=== PATIENT | female | born 1995 | race Caucasian/White ===

== ENCOUNTER 2018-03-15 02:17 | Emergency (ER) | payer BC ==
[~2018-03-15] VITALS: Ht 165.1 cm; Wt 79.4 kg
[2018-03-15 02:25] VITALS: BP_SYST 118
[2018-03-15] MEDS ORDERED: IBUPROFEN 800 MG TABLET PO ONE (03:00)
[2018-03-15] MEDS ORDERED: AMOXICILLIN 500 MG CAPSULE PO ONE (03:00)
[2018-03-15 03:16] VITALS: BP_SYST 118
== END 2018-03-15 03:16 | disposition home or self-care (01) ==
LOC: SED 02:17
DX: H66.92 Otitis media, unspecified, left ear (principal)
CPT/HCPCS: 99283

== ENCOUNTER 2021-12-26 22:46 | Emergency (ER) | payer BC, MEDICAID ==
[~2021-12-26] VITALS: Ht 165.1 cm; Wt 95.3 kg
[2021-12-26 22:50] VITALS: BP_SYST 127
--- NOTE | 2021-12-27 00:02 | NUR ---
Patient to ER bed 8 to gown for evaluation. Side rails up. Report given to Ambrocio JUAN(reg).
--- NOTE | 2021-12-27 00:16 | NUR ---
26 YR OLD FEMALE WITH DIFFICULTY WALKING DUE TO SMASHING ALL FIVE TOES ON THE LEFT FOOT ON A PLASTIC SLIDE ABOUT 7 HOURS AGO. PT REPORTED TAKING 800 MG OF IBUPROFEN FOR PAIN AFTER THE INCIDENT WITH NO PAIN RELIEF. PT REFUSES TO MOVE HER TOES DUE TO UNTOLERABLE WITH MOVEMENT. PT NOTED TO HAVE BRUISING ON THE TOP OF HER LEFT FOOT, WITH MILD SWELLING. PT STATED SHE HAS NOT PUT HER BODY WEIGHT ON HER LEFT FOOT SINCE THE INCIDENT. PT REPORTS HX OF GERD. PENDING XRAY AND MD EVALUATION.
--- NOTE | 2021-12-27 00:44 | NUR ---
AT THE BEDSIDE FOR EVALUATION
[2021-12-27] MEDS ORDERED: KETOROLAC TROMETHAMINE 30 MG VIAL IM ONE (01:00)
--- NOTE | 2021-12-27 01:14 | NUR ---
AT THE BEDSIDE TO INFORM PT OF XRAY RESULTS, PT PENDING FOOT WRAP WITH REBEL BANDAGE BY TECH.
--- NOTE | 2021-12-27 01:20 | NUR ---
EMT TECH AT THE BEDSIDE TO PLACE REBEL BANDAGE WITH BOOT ON PT FOR COMFORT, PENDING DISCHARGE
[2021-12-27] MEDS ORDERED: HYDROcodone/ACETAMIN 7.5-325 MG TAB PO ONE (01:30)
--- NOTE | 2021-12-27 01:41 | NUR ---
PT PROVIDED WITH DISCHARGE INSTRUCTIONS FOR [facility] OF FOOT CONTUSION. PT ENCOURAGED TO FOLLOW UP WITH PRIMARY CARE PHYSICIAN WITHIN 10 DAYS.ALL QUESTIONS ANSWERED, PT VERBALIZED UNDERSTANDING. PT DISCHARGED WITH ALL BELONGINGS, IN STABLE CONDITION, WITH CRUTCHES FROM HOME ACCOMPANIED BY MOTHER.
== END 2021-12-27 01:51 | disposition home or self-care (01) ==
LOC: SED 22:46
DX: S90.32XA Contusion of left foot, initial encounter (principal); J45.909 Unspecified asthma, uncomplicated; X58.XXXA Exposure to other specified factors, initial encounter; Y93.89 Activity, other specified; Y92.89 Other specified places as the place of occurrence of the external cause; Y99.8 Other external cause status
CPT/HCPCS: 73660; 96372; 99283; J1885

== ENCOUNTER 2022-03-28 18:15 | Emergency (ER) | payer MEDICAID ==
[~2022-03-28] VITALS: Ht 165.1 cm; Wt 95.3 kg
[2022-03-28 19:33] VITALS: BP_SYST 128
--- NOTE | 2022-03-28 19:35 | NUR ---
PT COMPLAIN OF RT BIG TOE, INJURY WHILE CLOSING DOOR AT HOME, AFTER 2 HRS NOTED SWELLING AND UNABLE TO MOVED,PAIN ON MOBILIZATION, TOOK IBUPROFEN 600MG PRIOR COMING TO ER. VSS,AFEBRILE. PLACED IN RM 7
--- NOTE | 2022-03-28 19:37 | NUR ---
Patient to ER bed 07 to gown for evaluation. Side rails up.
--- NOTE | 2022-03-28 19:40 | NUR ---
PATIENT BROUGHT IN C/O TO HER RIGHT TOE AFTER HITTING IT ON DOOR. PAIN 6/10. NO ACUTE DISTRESS NOTED. MILD SWELLING NOTED
--- NOTE | 2022-03-28 19:41 | NUR ---
ER Dr.DELA STEINBERG at bedside examining patient.
--- NOTE | 2022-03-28 20:01 | NUR ---
DR. NEWTON AT BEDSIDE DISCUSSING RESULTS
[2022-03-28] MEDS ORDERED: IBUP-1969 PO (20:09)
[2022-03-28 20:21] VITALS: BP_SYST 112
--- NOTE | 2022-03-28 20:21 | NUR ---
Patient given written and verbal discharge instructions and verbalizes understanding. ER MD discussed with patient the results and treatment provided. Patient in stable condition. ID arm band removed. Rx of IBUPROFEN given. Patient educated on pain management and to follow up with PMD. Pain Scale 0/10 Opportunity for questions provided and answered. Medication side effect fact sheet provided.
== END 2022-03-28 20:21 | disposition home or self-care (01) ==
LOC: SED 18:15
DX: S90.211A Contusion of right great toe with damage to nail, initial encounter (principal); J45.909 Unspecified asthma, uncomplicated; W22.8XXA Striking against or struck by other objects, initial encounter; Y93.89 Activity, other specified; Y92.89 Other specified places as the place of occurrence of the external cause; Y99.8 Other external cause status
CPT/HCPCS: 99283